=== PATIENT | male | born 1995 | race Caucasian/White ===

== ENCOUNTER 2020-08-05 10:06 | Emergency (ER) | payer MEDICAID, SELFPAY ==
[2020-08-05] MEDS ORDERED: Ketorolac Tromethamine 30 MG/ML VIAL ONE (10:41)
--- NOTE | 2020-08-05 11:19 | RAD ---
Exam: One view chest Right RIBS 3 views HISTORY: Pain and injury. Pain upon inspiration. FINDINGS: Chest one view: Normal cardiac silhouette. Pulmonary vessels and hilum are normal Costophrenic angles are clear. No mass. No consolidation. No pneumothorax or acute osseous abnormalit ies Right rib series: No fracture, cortical irregularity or periosteal reaction IMPRESSION: 1. No evidence of a right rib fracture 2. No acute cardiopulmonary process.
--- NOTE | 2020-08-05 11:44 | RAD ---
RIGHT SHOULDER 3 VIEWS: Date: 08/05/2020 HISTORY: Injury with pain. FINDINGS: No fracture or dislocation. AC joint normally aligned. IMPRESSION: No acute finding. POS: [id number]
== END 2020-08-05 11:39 | disposition home or self-care (01) ==
LOC: ERS 10:06
DX: S43.421A Sprain of right rotator cuff capsule, initial encounter (principal); X50.1XXA Overexertion from prolonged static or awkward postures, initial encounter
CPT/HCPCS: 96372; J1885

== ENCOUNTER 2021-02-09 07:18 | Emergency (ER) | payer SELFPAY ==
[2021-02-09] MEDS ORDERED: Ketorolac Tromethamine 30 MG/ML VIAL ONE (07:45)
[2021-02-09] MEDS ORDERED: Acetaminophen 500 MG TAB ONE (07:45)
== END 2021-02-09 09:07 | disposition home or self-care (01) ==
LOC: ERS 07:18
DX: S80.02XA Contusion of left knee, initial encounter (principal); X58.XXXA Exposure to other specified factors, initial encounter
CPT/HCPCS: 96372; J1885